=== PATIENT | male | born 1990 | race Caucasian/White ===

== ENCOUNTER → 2016-10-27 | Outpatient (CLI) | payer OTHER ==
[~2016-10-27] MED LIST: /LANS30GR; /PANT40TA OR; /QUET10TA OR; /QUET25TA OR; ABIL10TA PO; AMBI10TA OR; ATARAX OR; BENA25TA4 PO; BUSP10TA PO; BUSP10TA78 PO; BUSP30TA PO; CELE10TA; CELE40TA; CELE40TA OR; CELE40TA PO; CELEXA; CIPROHEPTADINE; CYPR4TA GT; CYPR4TA PO; CYPR4TAB PO; CYPROHEPTADINE PO; DEPA500T OR; DESYREL; DIPH50TA3 PO; HYDR-4274 PO; HYDR100C PO; HYDR1SOL PO; HYDRO50TAB PO; KLON0.5T; KLON1TAB OR; LEVO25TA34 PO; MAGN400T5 PO; NAPR220C PO; NEXI40CA PO; PEPT262T2 PO; PREV15CA OR; PROZ20CA11 PO; ROZE8TAB PO; SUBO8MIS SL; TRAZ150T PO; TRAZ50TA OR; ZOLP-189 PO; ZYPR5TAB2 PO; [UNRECOGNIZED DRUG - CODE] PO
[2016-10-27 17:24] LABS: ALBUMIN 4.2 GM/DL (3.2-5.2); ALKALINE PHOSPHATASE 93 U/L (45-117); ALT/SGPT 48 U/L (12-78); ANION GAP 7 MEQ/L (8-16); AST/SGOT 18 U/L (15-37); BILIRUBIN,TOTAL 0.3 MG/DL (0.2-1.0); BLOOD UREA NITROGEN 11 MG/DL (7-18); CALCIUM LEVEL 9.4 MG/DL (8.5-10.1); CARBON DIOXIDE LEVEL 24 MEQ/L (21-32); CHLORIDE LEVEL 111 MEQ/L (98-107); CREATININE FOR GFR 1.15 MG/DL (0.70-1.30); FREE T4 0.99 NG/DL (0.76-1.46); GLOMERULAR FILTRATION RATE > 60.0 (>60); GLUCOSE, FASTING 91 MG/DL (70-105); MAGNESIUM LEVEL 2.3 MG/DL (1.8-2.4); POTASSIUM SERUM 4.2 MEQ/L (3.5-5.1); SODIUM LEVEL 142 MEQ/L (136-145)
== END ==
LOC: M WUC 11:17
PROVIDERS: ATTEND Psychiatry & Neurology Psychiatry
DX: Z51.81 Encounter for therapeutic drug level monitoring (principal); Z79.899 Other long term (current) drug therapy

== ENCOUNTER → 2016-10-27 | Outpatient (CLI) | payer OTHER ==
[2016-10-27 17:03] LABS: FREE T4 0.99 NG/DL (0.76-1.46)
== END ==
LOC: M WUC 11:13
PROVIDERS: ATTEND Emergency Medicine
DX: E03.9 Hypothyroidism, unspecified (principal); E55.9 Vitamin D deficiency, unspecified

== ENCOUNTER → 2017-10-02 | Outpatient (CLI) | payer OTHER ==
[2017-10-02 14:13] LABS: ESTIMATED AVERAGE GLUCOSE 114 MG/DL (60-110); HEMOGLOBIN A1c 5.6 %
[2017-10-02 14:25] LABS: ALBUMIN/GLOBULIN RATIO 1.25 (1.00-1.93); ALKALINE PHOSPHATASE 99 U/L (45-117); ALT/SGPT 59 U/L (12-78); ANION GAP 5 MEQ/L (8-16); AST/SGOT 34 U/L (7-37); BILIRUBIN,TOTAL 0.3 MG/DL (0.2-1.0); BLOOD UREA NITROGEN 17 MG/DL (7-18); CALCIUM LEVEL 9.2 MG/DL (8.5-10.1); CARBON DIOXIDE LEVEL 29 MEQ/L (21-32); CHLORIDE LEVEL 109 MEQ/L (98-107); CHOLESTEROL LEVEL 192 MG/DL (<200); CHOLESTEROL RISK RATIO 4.682 (<5); CREATININE FOR GFR 1.19 MG/DL (0.70-1.30); GLOMERULAR FILTRATION RATE > 60.0 (>60); GLUCOSE, FASTING 95 MG/DL (70-100); HDL CHOLESTEROL 41 MG/DL (>40); LDL CHOLESTEROL 98.2 MG/DL (<100); MAGNESIUM LEVEL 2.4 MG/DL (1.8-2.4); NON-HDL-C 151 MG/DL; POTASSIUM SERUM 5.1 MEQ/L (3.5-5.1); SODIUM LEVEL 143 MEQ/L (136-145); TOTAL PROTEIN 7.2 GM/DL (6.4-8.2); TRIGLYCERIDES LEVEL 264 MG/DL (<150)
[2017-10-05 00:08] LABS: LAMOTRIGINE (LAMICTAL) 3.7 ug/mL (2.0-20.0)
== END ==
LOC: M WUC 12:18
DX: Z79.899 Other long term (current) drug therapy (principal)
CPT/HCPCS: 83735

== ENCOUNTER → 2018-10-29 | Outpatient (REF) | payer OTHER ==
[~2018-10-29] MED LIST changes: -/PANT40TA OR; -/QUET10TA OR; -/QUET25TA OR; -CYPR4TA GT; -CYPR4TA PO; +CYPR4TAB GT; +HYDR50TA70 PO; -HYDRO50TAB PO; +PROT1TAB2 OR; +SERO1TAB OR; +SERO1TAB3 OR
[2018-10-29 17:59] LABS: BASO # 0.1 10^3/uL (0.0-0.2); BASO % 0.9 % (0.0-1.0); EOS # 0.2 10^3/uL (0.0-0.50); EOS % 2.3 % (0.0-3.0); HEMATOCRIT 40.8 % (42.0-52.0); HEMOGLOBIN 13.7 g/dl (13.5-17.5); LYMPH # 2.7 10^3/uL (1.5-6.5); LYMPH % 41.2 % (24.0-44.0); MEAN CORPUSCULAR HGB CONC 33.6 g/dl (32.0-36.5); MEAN CORPUSCULAR VOLUME 89.3 fl (80.0-96.0); MONO # 0.5 10^3/uL (0.0-0.8); MONO % 7.1 % (0.0-5.0); NEUTROPHILS # 3.2 10^3/uL (1.8-7.7); PLATELET COUNT, AUTOMATED 295 10^3/uL (150-450); RED BLOOD COUNT 4.57 10^6/uL (4.30-6.10); WHITE BLOOD COUNT 6.6 10^3/uL (4.0-10.0)
[2018-10-29 18:04] LABS: ALBUMIN 3.8 GM/DL (3.2-5.2); ALT/SGPT 47 U/L (12-78); BILIRUBIN,TOTAL 0.1 MG/DL (0.2-1.0); BLOOD UREA NITROGEN 16 MG/DL (7-18); CALCIUM LEVEL 8.5 MG/DL (8.5-10.1); CARBON DIOXIDE LEVEL 21 MEQ/L (21-32); CHLORIDE LEVEL 113 MEQ/L (98-107); CHOLESTEROL LEVEL 261 MG/DL (<200); CHOLESTEROL RISK RATIO 7.054 (<5); CREATININE FOR GFR 1.07 MG/DL (0.70-1.30); FREE T4 0.85 NG/DL (0.76-1.46); GLOMERULAR FILTRATION RATE > 60.0 (>60); GLUCOSE, FASTING 92 MG/DL (70-100); HDL CHOLESTEROL 37 MG/DL (>40); NON-HDL-C 224 MG/DL; POTASSIUM SERUM 3.9 MEQ/L (3.5-5.1); SODIUM LEVEL 142 MEQ/L (136-145); TOTAL 25(OH) VITAMIN D 11.7 NG/ML (30.0-100.0); TOTAL PROTEIN 7.2 GM/DL (6.4-8.2); TRIGLYCERIDES LEVEL 468 MG/DL (<150)
[2018-10-29 18:58] LABS: HEMOGLOBIN A1c 5.5 %
== END ==
LOC: M LAB REF 16:48
PROVIDERS: ATTEND Nurse Practitioner Family
DX: Z13.9 Encounter for screening, unspecified (principal)

== ENCOUNTER 2019-04-03 16:05 | Inpatient (IN) | payer OTHER ==
[~2019-04-03] VITALS: Ht 172.7 cm; Wt 89.6 kg
[~2019-04-03 16:05] MED LIST changes: +ATOR1TAB21 PO; +BUSP1TAB PO; +DOCU100C16 PO; +ESCI20TA PO; +LAMO200T2 PO; +OMEP-218 PO; +QUET1TAB8 PO; +REXU1TAB4 PO; +REXU1TAB6 PO
[2019-04-03] MEDS ORDERED: ACETAMINOPHEN TAB 650MG DOSE (2X325MG) PO PRN (16:15)
[2019-04-03] MEDS ORDERED: MOM 30ML SUSPENSION UDC PO PRN (16:15)
[2019-04-03] MEDS ORDERED: MAALOX 30 ML SUSP *UDC PO PRN (16:15)
[2019-04-03 17:30] VITALS: BP 121/56
[2019-04-03] MEDS: ATORVASTATIN 20 MG TAB PO SCH (20:58)
[2019-04-03] MEDS: traZODone 50 MG TAB PO PRN (20:58)
[2019-04-03] MEDS ORDERED: IBUPROFEN 400 MG TAB PO PRN (21:30)
[2019-04-04] MEDS: LEVOTHYROXINE 25MCG TABLET (0.025MG) PO SCH (06:18)
[2019-04-04] MEDS: NICOTINE 21MG/24HR 1 EA TRANSDERMAL TD SCH (08:43)
--- NOTE | 2019-04-04 10:50 | HPEPDOC ---
General Date of Admission Apr 03, 2019 at 17:20 Date of Service: Apr 04, 2019 Chief Complaint The patient is a 29-year-old male admitted with a reason for visit of Unspecified Depressive Disorder. Source: Patient, Old records History of Present Illness 29 year old male has been admitted to [facility] after a suicidal attempt by ingestion of his father's medications when initially he was hypotensive, hypokalemic and had LES. All of which has now resolved so he was admitted to [facility] from medicine. Today he complains of periumbilical pain, which is constant dull aching, without any radiation about 3/10 denies any nausea or vomiting . Says had good bowel movement. he also says that he continues to fill dizzy and light headed on standing and walking. Says does not have any appetite. I am seeing the patient here for medical history and physical . Home Medications Scheduled Atorvastatin Calcium (Atorvastatin Calcium) 20 Mg Tablet, 20 MG PO QHS, (Reported) Buprenorphine HCl/Naloxone HCl (Suboxone 8 mg-2 mg Sl Film) 1 Mis Mis, 1 MIS SL DAILY, (Reported) Docusate Sodium (Docusate Sodium) 100 Mg Capsule, 200 MG PO BID, (Reported) Levothyroxine Sodium (Levoxyl) 25 Mcg Tab, 25 MCG PO DAILY, (Reported) Omeprazole (Omeprazole) 20 Mg Capsule.dr, 20 MG PO DAILY, (Reported) Allergies Coded Allergies: No Known Allergies (Verified , 10/18/04) Past Medical History Medical History Intentional multiple drug overdose with Suicidal intent Depression with h/o psychosis. 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 Dyspnea, Lt Headedness Gastrointestinal: Reports: Abdominal Pain (periumblical region); Denies: Nausea, Vomiting, Diarrhea, Constipation Genitourinary: Denies: Dysuria, Frequency, Incontinence, Retention Hematologic: Denies: Bruising, Bleeding Excessively Neurological: Denies: Weakness, Numbness, Change in speech, Confusion Physical Examination General Exam: Positive: Alert, Cooperative, No Acute Distress Eye Exam: Positive: PERRLA, Conjunctiva & lids normal, EOMI; Negative: Sclera icteric ENT Exam: Positive: Atraumatic, Mucous membr. moist/pink, Pharynx Normal Neck Exam: Positive: Supple; Negative: JVD, thyromegaly Chest Exam: Positive: Clear to auscultation, Normal air movement Heart Exam: Positive: Rate Normal, Regular Rhythm, Normal S1, Normal S2; Negative: Murmurs, Rubs Abdomen Exam: Positive: Normal bowel sounds, Soft, Tenderness (on deep palpation in the periumbilical area), Other (no guarding or rigidity); Negative: Hepatospenomegaly Extremity Exam: Positive: Normal pulses; Negative: Clubbing, Cyanosis, Edema Skin Exam: Positive: Nl turgor and temperature; Negative: Breakdown, Lesion Vital Signs Vital Signs Date Time Temp Pulse Resp B/P (MAP) Pulse Ox O2 Delivery O2 Flow Rate FiO2 04/03/19 17:30 98.3 60 16 121/56 (77) 97 Room Air Assessment/Plan 29 year old male has been admitted to [facility] after a suicidal attempt by ingestion of his father's medications when initially he was hypotensive, hypokalemic and had LES. All of which has now resolved so he was admitted to [facility] from medicine. Today he complains of periumbilical pain, which is constant dull aching, without any radiation about 3/10 denies any nausea or vomiting . Says had good bowel movement. he also says that he continues to fill dizzy and light headed on standing and walking. Says does not have any appetite. I am seeing the patient here for medical history and physical . Psychiatric issues as per psychiatry Abdominal pain may due to worsening of GERD. without any positive physical findings will start on pantoprazole and give GI cocktail prn Dizziness and lightheadedness probably due to recent intake of multiple antihypertensive medications BP normal. Sinus bradycardia resolved. 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
[2019-04-04] MEDS: PANTOPRAZOLE 40MG TAB (PROTONIX) PO SCH (11:06)
[2019-04-04] MEDS: BREXPIPRAZOLE 2MG TABLET (REXULTI) PO SCH (12:29)
[2019-04-04] MEDS: BUPRENORPHINE/NALOXONE 8-2MG SUBLINGUAL TABLET(SUBOXONE) SL SCH (12:29)
[2019-04-04] MEDS: GI COCKTAIL 50ML BTL(HYOSCYAMINE/MAALOX/LIDOCAINE VISCOUS)(1:3:1) PO PRN ×2 (14:32→21:19)
[2019-04-04 16:18] VITALS: BP 120/64
--- NOTE | 2019-04-04 18:49 | MHHPE ---
DATE OF ADMISSION: 04/03/2019 CURRENT MEDICATIONS: - Lamictal 400 mg per day - Suboxone 8 mg daily - Seroquel 150 mg at bedtime - Rexulti 6 mg per day CHIEF COMPLAINT: This is a 29-year-old white male single, living with his parents with a diagnosis of bipolar disorder being treated at [facility]. Patient has been depressed for approximately 1 month since his girlfriend broke up with him. His appetite is poor. He has lost 20 pounds. His concentration is poor. He complains of lack of interest and lack of energy. Patient quit his job impulsively. 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 After reconsideration, he got the job back, but one week later patient is not sleeping well at night. He has been struggling with suicidal thoughts ever since the girlfriend broke up with him. He blames himself for the breakup due to his behavior. However, he is not willing to discuss it. He denies that he is abusive towards her. Patient took a serious overdose requiring ICU treatment. He took his father's blood pressure medications. Patient was seen by Dr. Stearns and then by myself during the transfer. PAST PSYCHIATRIC HISTORY: Patient has a long psychiatric history dating back to age 12. He had anger issues at that time and was hospitalized at [facility]. Patient claims to have been hospitalized 10 to 15 times over the years. Please see old records. PAST MEDICAL HISTORY: Elevated cholesterol. Recent overdose. LEGAL HISTORY: Patient denies. CHEMICAL DEPENDENCY: History of alcoholism and opiate use. He has been to rehabilitation approximately four times over the years. He has been on Suboxone for about 3-1/2 years. He claims to have started using heroin approximately at age 22. He denies any relapses since being on the Suboxone. SOCIAL HISTORY: The patient born and raised in [place]. He has a GED. He has one semester of college. 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 He likes his job. Relationship with his parents are good. Relationship with his siblings are good as well. FAMILY PSYCHIATRIC HISTORY: There is a history of depression in the family. MENTAL STATUS EXAM: The patient is alert and oriented. He still reports feeling "cloudy" from the overdose, but no overt cognitive deficits. Affect is sad. Mood is moderately depressed with recent suicide attempt. No current signs of jc. No signs of psychosis. Not hearing voices. No signs of paranoia or thought disorder. Grooming and hygiene are marginal. No signs of jc. Patient appears impulsive and a potential danger to himself. Length of stay: 5 to 7 days. ASSESSMENT: The patient took a serious impulsive overdose after relationship conflict. DIAGNOSES: Bipolar disorder, depressed. Opiate use disorder. Alcohol use disorder. Status post overdose. PLAN: admission. Restart psychotropics gradually. Patient is not convinced that Lamictal had been helpful so this will be placed on hold for the time being. Patient encouraged to be involved in hospital milieu. Staff to work on appropriate discharge planning.
[2019-04-04] MEDS ORDERED: QUEtiapine FUMARATE 100 MG TAB PO SCH (21:00)
[2019-04-04] MEDS: ATORVASTATIN 20 MG TAB PO SCH (21:15)
[2019-04-05 05:59] VITALS: BP 111/56
[2019-04-05] MEDS: LEVOTHYROXINE 25MCG TABLET (0.025MG) PO SCH (06:03)
[2019-04-05] MEDS: BREXPIPRAZOLE 2MG TABLET (REXULTI) PO SCH (08:13)
[2019-04-05] MEDS: PANTOPRAZOLE 40MG TAB (PROTONIX) PO SCH (08:13)
[2019-04-05] MEDS: NICOTINE 21MG/24HR 1 EA TRANSDERMAL TD SCH (08:13)
[2019-04-05] MEDS: BUPRENORPHINE/NALOXONE 8-2MG SUBLINGUAL TABLET(SUBOXONE) SL SCH (09:02)
[2019-04-05] MEDS: GI COCKTAIL 50ML BTL(HYOSCYAMINE/MAALOX/LIDOCAINE VISCOUS)(1:3:1) PO PRN (10:19)
[2019-04-05] MEDS: ACETAMINOPHEN TAB 650MG DOSE (2X325MG) PO PRN ×2 (12:19→18:39)
[2019-04-05 16:21] VITALS: BP 106/65
[2019-04-05] MEDS: QUEtiapine FUMARATE 100 MG TAB PO SCH (21:45)
[2019-04-05] MEDS: ATORVASTATIN 20 MG TAB PO SCH (21:45)
[2019-04-06 05:45] VITALS: BP 130/55
[2019-04-06] MEDS: traZODone 50 MG TAB PO PRN (06:15)
[2019-04-06] MEDS: LEVOTHYROXINE 25MCG TABLET (0.025MG) PO SCH (06:15)
--- NOTE | 2019-04-06 08:15 | MHIPN ---
DATE OF SERVICE: 04/05/2019 VITAL SIGNS: Temperature 97.6, pulse 76, respirations 16, blood pressure 111/56. CURRENT MEDICATION: - Seroquel 100 mg at bedtime - Suboxone 8 mg daily - Rexulti 4 mg daily - trazodone 50 mg at bedtime as needed HISTORY OF PRESENT ILLNESS: Patient states that he feels more alert. Orthostatic symptoms appear to have resolved. He feels more like his old self. His headaches are resolving. He still feels moderately depressed but not suicidal. His appetite is increased. His sleep pattern is still not very good. Patient reports that frequently he would take Seroquel 200 mg at bedtime at home to help with sleep. He still complains of high levels of anxiety and periodic panic attacks. He thinks his parents might be coming in to visit later today during visiting hours. Patient is happy to be off the Lamictal. He claims it never really helped anyhow. He claims that it made him cognitively slowed. MENTAL STATUS EXAMINATION: Patient is alert, oriented and cooperative. Patient appears more alert on the unit and active. Depression is moderate. He is not currently suicidal. Patient denies current psychotic symptoms. No signs of manic. Grooming and hygiene remain marginal. He denies current dangerousness. DIAGNOSIS: Bipolar disorder, depressed. Opiate use disorder. Alcohol use disorder. Status post overdose. PLAN: Increase Seroquel to 200 mg at bedtime. Encourage involvement in hospital milieu.
[2019-04-06] MEDS: BREXPIPRAZOLE 2MG TABLET (REXULTI) PO SCH (08:35)
[2019-04-06] MEDS: PANTOPRAZOLE 40MG TAB (PROTONIX) PO SCH (08:35)
[2019-04-06] MEDS: NICOTINE 21MG/24HR 1 EA TRANSDERMAL TD SCH (08:37)
[2019-04-06] MEDS: BUPRENORPHINE/NALOXONE 8-2MG SUBLINGUAL TABLET(SUBOXONE) SL SCH (08:50)
[2019-04-06] MEDS: busPIRone 5 MG TAB PO SCH ×2 (11:25→20:32)
[2019-04-06 16:09] VITALS: BP 121/69
[2019-04-06] MEDS: GI COCKTAIL 50ML BTL(HYOSCYAMINE/MAALOX/LIDOCAINE VISCOUS)(1:3:1) PO PRN (17:12)
[2019-04-06] MEDS ORDERED: LORazepam 2 MG TAB PO ONE (20:00)
[2019-04-06] MEDS: ATORVASTATIN 20 MG TAB PO SCH (20:33)
[2019-04-06] MEDS: QUEtiapine FUMARATE 100 MG TAB PO SCH (20:33)
[2019-04-07] MEDS: traZODone 50 MG TAB PO PRN ×2 (01:32→22:48)
[2019-04-07] MEDS: LEVOTHYROXINE 25MCG TABLET (0.025MG) PO SCH (05:55)
[2019-04-07 06:37] VITALS: BP 125/70
--- NOTE | 2019-04-07 07:00 | MHIPN ---
DATE: 04/06/2019 VITAL SIGNS: Temperature 99.0, pulse 77, respirations 18, blood pressure 121/69. CURRENT MEDICATIONS: - Seroquel 200 mg at bedtime - Suboxone 8 mg daily - Rexulti 4 mg daily HISTORY OF PRESENT ILLNESS: The patient still reports some anxiety symptoms. The patient requests BuSpar which had been helpful on an outpatient basis. He still reports moderate depression. His family visited last night which went well. He has had some stomach issues. He vomited earlier today. He does not have a fever. MENTAL STATUS EXAMINATION: The patient is alert, oriented and cooperative. The patient moderately anxious, moderately depressed. No signs of suicidality. No current psychosis. No signs of jc. Grooming and hygiene are marginal. No signs of impulsivity or dangerousness. DIAGNOSIS: Bipolar disorder, depressed. Opiate use disorder. Alcohol use disorder. Status post overdose. PLAN: Add BuSpar 5 mg twice a day.
[2019-04-07] MEDS: NICOTINE 21MG/24HR 1 EA TRANSDERMAL TD SCH (08:16)
[2019-04-07] MEDS: PANTOPRAZOLE 40MG TAB (PROTONIX) PO SCH (08:16)
[2019-04-07] MEDS: BUPRENORPHINE/NALOXONE 8-2MG SUBLINGUAL TABLET(SUBOXONE) SL SCH (08:16)
[2019-04-07] MEDS: busPIRone 5 MG TAB PO SCH ×3 (08:16→20:48)
[2019-04-07] MEDS: BREXPIPRAZOLE 2MG TABLET (REXULTI) PO SCH (08:16)
[2019-04-07] MEDS: GI COCKTAIL 50ML BTL(HYOSCYAMINE/MAALOX/LIDOCAINE VISCOUS)(1:3:1) PO PRN (09:21)
[2019-04-07] MEDS: NICOTINE POLACRILEX 2 MG GUM PO PRN ×3 (12:58→20:48)
--- NOTE | 2019-04-07 14:14 | MHIPN ---
DATE: 04/07/2019 VITAL SIGNS: Temperature 98.4, pulse 75, respirations 16, blood pressure 125/70. CURRENT MEDICATIONS: BuSpar 5 mg twice a day. Seroquel 200 mg at bedtime. Suboxone 8 mg per day. Rexulti 4 mg daily. HISTORY OF PRESENT ILLNESS: The patient's mother had some cardiac symptoms yesterday and was in the emergency room. This made the patient highly anxious and upset. He was given a dose of Ativan 2 mg times one with good effect. He felt reassured later finding out that his mother was doing fine. His appetite is fair. His sleep patterns are poor. He is having periodic night yepez even with the Seroquel. The patient felt guilty about his mother's chest pain. He knows that his suicide attempt upset his parents and may have contributed to her chest pain. The staff contacted the patient's parents. They feel that he is not at baseline. He is still irritable with them and has labile mood. He has had no further GI issues. MENTAL STATUS EXAMINATION: The patient is alert, oriented, cooperative. Grooming and hygiene remain marginal. Patient moderately anxious today. Mood is mildly to moderately depressed. He denies wish to harm self or others. No current signs of psychosis or jc. Cognitive functions appear intact. DIAGNOSIS: Bipolar disorder, depressed. Opiate use disorder. Alcohol use disorder. Status post overdose. PLAN: Increase BuSpar to 5 mg three times a day.
[2019-04-07 15:26] VITALS: BP 145/78
[2019-04-07] MEDS: ATORVASTATIN 20 MG TAB PO SCH (20:48)
[2019-04-07] MEDS: QUEtiapine FUMARATE 100 MG TAB PO SCH (20:48)
[2019-04-08] MEDS: LEVOTHYROXINE 25MCG TABLET (0.025MG) PO SCH (06:05)
[2019-04-08 06:47] VITALS: BP 107/56
[2019-04-08] MEDS: NICOTINE POLACRILEX 2 MG GUM PO PRN ×5 (08:09→19:50)
[2019-04-08] MEDS: busPIRone 5 MG TAB PO SCH ×3 (08:10→21:07)
[2019-04-08] MEDS: BUPRENORPHINE/NALOXONE 8-2MG SUBLINGUAL TABLET(SUBOXONE) SL SCH (08:10)
[2019-04-08] MEDS: PANTOPRAZOLE 40MG TAB (PROTONIX) PO SCH (08:10)
[2019-04-08] MEDS: BREXPIPRAZOLE 2MG TABLET (REXULTI) PO SCH (08:10)
[2019-04-08] MEDS ORDERED: REXU1TAB4 PO (13:09)
[2019-04-08] MEDS ORDERED: REXU1TAB6 PO (13:09)
[2019-04-08] MEDS ORDERED: BUSP1TAB PO (13:12)
[2019-04-08] MEDS ORDERED: QUET200T2 PO (13:15)
--- NOTE | 2019-04-08 15:24 | MHIPN ---
DATE: 04/08/2019 VITAL SIGNS: Temperature 98.9, pulse 60, respirations 12, blood pressure 107/56. CURRENT MEDICATIONS: - BuSpar 5 mg twice a day - Seroquel 200 mg at bedtime - Suboxone 8 mg daily - Rexulti 4 mg daily HISTORY OF PRESENT ILLNESS: The patient states he feels "less foggy." His thinking is clearer. He states his mood is more steady and stable. He has started going to groups for the first time. His appetite is good. He has gained some weight back since his admission. He still has chronic sleep issues. He has history of nightmares. This is a chronic symptom and occurred at home as well. He feels the current Seroquel does help but sleep is not optimal. He has found the BuSpar helpful. Depression now is in the mild range. He does have goals. He wants to return to work. His parents are visiting frequently. Yesterday they were contacted and stated the patient was not at baseline. Discharge planning staff will contact them to get their updated assessment. MENTAL STATUS EXAMINATION: Patient is alert, oriented, cooperative. Grooming and hygiene are still marginal. Patient is mildly anxious. Mood is mildly depressed. He is not suicidal and homicidal. Insight and judgment seem improved. Patient not currently psychotic. No signs of jc. Cognitive functions appear within normal limits. DIAGNOSIS: Bipolar disorder, depressed. Opiate use disorder. Alcohol use disorder. Status post overdose. PLAN: Continue present management. DANETTE
[2019-04-08] MEDS: GI COCKTAIL 50ML BTL(HYOSCYAMINE/MAALOX/LIDOCAINE VISCOUS)(1:3:1) PO PRN (17:44)
[2019-04-08 18:11] VITALS: BP 122/62
[2019-04-08] MEDS: QUEtiapine FUMARATE 100 MG TAB PO SCH (21:07)
[2019-04-08] MEDS: ATORVASTATIN 20 MG TAB PO SCH (21:07)
[2019-04-09] MEDS: LEVOTHYROXINE 25MCG TABLET (0.025MG) PO SCH (06:10)
[2019-04-09 06:31] VITALS: BP 109/61
[2019-04-09] MEDS: busPIRone 5 MG TAB PO SCH (08:02)
[2019-04-09] MEDS: BUPRENORPHINE/NALOXONE 8-2MG SUBLINGUAL TABLET(SUBOXONE) SL SCH (08:02)
[2019-04-09] MEDS: PANTOPRAZOLE 40MG TAB (PROTONIX) PO SCH (08:03)
[2019-04-09] MEDS: BREXPIPRAZOLE 2MG TABLET (REXULTI) PO SCH (08:03)
[2019-04-09] MEDS: NICOTINE POLACRILEX 2 MG GUM PO PRN ×2 (08:05→10:36)
--- NOTE | 2019-04-09 09:27 | MHDS ---
DATE OF ADMISSION: 04/03/2019 DATE OF DISCHARGE: 04/09/2019 VITAL SIGNS: Temperature 98.9, pulse 60, respirations 12, blood pressure 107/56. LABS: CBC and differential normal except for low red blood cell, hemoglobin and hematocrit 4.16, 12.12, 37.7. Serum chemistry showed elevated chloride at 111. Urine toxicology screen was positive for amphetamine. DISCHARGE DIAGNOSES: Bipolar disorder, depressed. Opiate use disorder. Alcohol use disorder. Status post overdose of blood pressure medications. DISCHARGE MEDICATIONS: - Suboxone 8 mg daily - Seroquel 200 mg nightly - Rexulti 4 mg daily - BuSpar 15 mg daily CHIEF COMPLAINT: Patient took a serious overdose ending up in the intensive care unit (ICU) here at [facility]. HISTORY OF PRESENT ILLNESS: This is a 29-year-old single white male living with his parents. He has a diagnosis of bipolar disorder being treated at [facility]. He has been depressed for about 1 month since his girlfriend broke up with him. Patient has lost 20 pounds. 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 However, he was able to get it back after reconsideration. Patient took his father's blood pressure medications. Patient was seen by Dr. Stearns on consultation basis and the myself during the transfer. PROGRESS ON THE UNIT: Patient isolated a lot on the unit at first. He still appeared sedated and somewhat wobbly. Patient gradually became more alert. He had some gastrointestinal (GI) symptoms which eventually resolved. His appetite improved. He started to regain weight. He still complains of insomnia. He has a chronic history of nightmares, which date back for many years. Patient was restarted on his psychotropics. He did well on the lower dose of Rexulti 4 mg a day. His mood gradually improved. His anxiety symptoms appear to respond to the addition of the BuSpar. The patient had a scare when his mother had chest pain. His mother was seen in the emergency room but released. Family initially thought that he was not at baseline, however, several days later, they agreed that he was close to his old self and was willing to accept responsibility for discharge. Patient wanted to return to work. 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 The patient appeared future oriented and showed no signs of dangerousness at the time of discharge. MENTAL STATUS EXAMINATION: At the time of discharge mood and affect appeared reasonably good. He was no longer suicidal. Depression was minimal. Anxiety was minimal. No signs of impulsivity. He denied psychotic symptoms. Patient is not hearing voices. No paranoid episode. No signs of impulsivity or dangerousness. Cognitive function is intact. ASSESSMENT: Patient appears to have reached maximal hospital benefit. PLAN: Patient will be discharged tomorrow. Patient's mother to come poultry picking machine tender the patient and return home. ADDENDUM: Discharge summary is being dictated 1-day prior to actual date of discharge per request of staff.
== END 2019-04-09 11:13 | disposition home or self-care (01) | DRG 753 ==
LOC: M PSY 17:20
PROVIDERS: ADMIT Psychiatry & Neurology Psychiatry; ATTEND Psychiatry & Neurology Addiction Medicine
DX: F31.30 Bipolar disorder, current episode depressed, mild or moderate severity, unspecified (principal); E03.9 Hypothyroidism, unspecified; F11.90 Opioid use, unspecified, uncomplicated; F10.10 Alcohol abuse, uncomplicated; Z79.899 Other long term (current) drug therapy; E78.5 Hyperlipidemia, unspecified; K21.9 Gastro-esophageal reflux disease without esophagitis

== ENCOUNTER → 2019-05-22 | Outpatient (CLI) | payer OTHER ==
[~2019-05-22] MED LIST changes: -LAMO200T2 PO; +LAMO200T3 PO; +QUET200T2 PO
[2019-05-22 13:19] LABS: BASO # 0.1 10^3/uL (0.0-0.2); BASO % 0.7 % (0.0-1.0); EOS # 0.2 10^3/uL (0.0-0.5); EOS % 2.8 % (0.0-3.0); HEMATOCRIT 44.2 % (42.0-52.0); HEMOGLOBIN 14.2 g/dl (13.5-17.5); LYMPH # 3.3 10^3/uL (1.5-5.0); LYMPH % 45.4 % (24.0-44.0); MEAN CORPUSCULAR HEMOGLOBIN 28.7 pg (27.0-33.0); MEAN CORPUSCULAR HGB CONC 32.1 g/dl (32.0-36.5); MEAN CORPUSCULAR VOLUME 89.5 fl (80.0-96.0); MONO # 0.5 10^3/uL (0.0-0.8); MONO % 6.5 % (0.0-5.0); NEUTROPHILS # 3.2 10^3/uL (1.5-8.5); NEUTROPHILS % 44.3 % (36.0-66.0); PLATELET COUNT, AUTOMATED 283 10^3/uL (150-450); RED BLOOD COUNT 4.94 10^6/uL (4.30-6.10); WHITE BLOOD COUNT 7.2 10^3/uL (4.0-10.0)
[2019-05-22 13:52] LABS: HEMOGLOBIN A1c 5.4 %
[2019-05-22 13:55] LABS: ALT/SGPT 66 U/L (12-78); BILIRUBIN,TOTAL 0.3 MG/DL (0.2-1.0); BLOOD UREA NITROGEN 13 MG/DL (7-18); CALCIUM LEVEL 9.4 MG/DL (8.5-10.1); CARBON DIOXIDE LEVEL 29 MEQ/L (21-32); CHLORIDE LEVEL 105 MEQ/L (98-107); CREATININE FOR GFR 1.05 MG/DL (0.70-1.30); GLOMERULAR FILTRATION RATE > 60.0 (>60); GLUCOSE, FASTING 98 MG/DL (70-100); POTASSIUM SERUM 4.1 MEQ/L (3.5-5.1); SODIUM LEVEL 139 MEQ/L (136-145); TOTAL PROTEIN 7.5 GM/DL (6.4-8.2)
== END ==
LOC: M LAB 12:23
PROVIDERS: ATTEND Psychiatry & Neurology Child & Adolescent Psychiatry
DX: Z51.81 Encounter for therapeutic drug level monitoring (principal); Z79.899 Other long term (current) drug therapy
CPT/HCPCS: 36415; 80053; 80307; 83036; 84443; 85025; G0480

== ENCOUNTER → 2019-07-15 | Outpatient (REF) | payer OTHER ==
[~2019-07-15] MED LIST changes: +QUET100T2 PO; -QUET1TAB8 PO
[2019-07-15 12:52] LABS: BASO # 0.1 10^3/uL (0.0-0.2); BASO % 0.7 % (0.0-1.0); EOS # 0.2 10^3/uL (0.0-0.5); EOS % 1.8 % (0.0-3.0); HEMATOCRIT 42.3 % (42.0-52.0); LYMPH # 4.2 10^3/uL (1.5-5.0); LYMPH % 35.6 % (24.0-44.0); MEAN CORPUSCULAR HEMOGLOBIN 28.9 pg (27.0-33.0); MEAN CORPUSCULAR HGB CONC 33.1 g/dl (32.0-36.5); MEAN CORPUSCULAR VOLUME 87.4 fl (80.0-96.0); MONO # 0.7 10^3/uL (0.0-0.8); MONO % 6.3 % (0.0-5.0); NEUTROPHILS # 6.5 10^3/uL (1.5-8.5); NEUTROPHILS % 55.2 % (36.0-66.0); PLATELET COUNT, AUTOMATED 310 10^3/uL (150-450); RED BLOOD COUNT 4.84 10^6/uL (4.30-6.10); WHITE BLOOD COUNT 11.7 10^3/uL (4.0-10.0)
[2019-07-15 13:11] LABS: ALBUMIN 4.5 GM/DL (3.2-5.2); ALT/SGPT 65 U/L (12-78); BILIRUBIN,TOTAL 0.4 MG/DL (0.2-1.0); BLOOD UREA NITROGEN 18 MG/DL (7-18); CALCIUM LEVEL 9.6 MG/DL (8.5-10.1); CARBON DIOXIDE LEVEL 30 MEQ/L (21-32); CHLORIDE LEVEL 108 MEQ/L (98-107); CHOLESTEROL LEVEL 266 MG/DL (<200); CREATININE FOR GFR 0.99 MG/DL (0.70-1.30); FREE T4 0.91 NG/DL (0.76-1.46); GLOMERULAR FILTRATION RATE > 60.0 (>60); GLUCOSE, FASTING 96 MG/DL (70-100); HDL CHOLESTEROL 56 MG/DL (>40); LDL CHOLESTEROL 161 MG/DL (<100); NON-HDL-C 210 MG/DL; SODIUM LEVEL 142 MEQ/L (136-145); TOTAL 25(OH) VITAMIN D 18.7 NG/ML (30.0-100.0); TOTAL PROTEIN 7.7 GM/DL (6.4-8.2); TRIGLYCERIDES LEVEL 246 MG/DL (<150)
== END ==
LOC: M LAB REF 12:10
PROVIDERS: ATTEND Nurse Practitioner Family
DX: Z13.9 Encounter for screening, unspecified (principal); E78.5 Hyperlipidemia, unspecified; E03.9 Hypothyroidism, unspecified

== ENCOUNTER → 2019-07-24 | Outpatient (CLI) | payer OTHER | LOC: M LAB 14:22 | PROVIDERS: ATTEND Psychiatry & Neurology Child & Adolescent Psychiatry | DX: F19.10 Other psychoactive substance abuse, uncomplicated (principal) ==

== ENCOUNTER → 2019-12-17 | Outpatient (CLI) | payer OTHER ==
[2020-01-25 12:01] LABS: ALBUMIN 4.4 GM/DL (3.2-5.2); ALT/SGPT 93 U/L (12-78); BILIRUBIN,TOTAL 0.6 MG/DL (0.2-1.0); BLOOD UREA NITROGEN 11 MG/DL (7-18); CALCIUM LEVEL 9.4 MG/DL (8.5-10.1); CARBON DIOXIDE LEVEL 33 MEQ/L (21-32); CHLORIDE LEVEL 106 MEQ/L (98-107); CHOLESTEROL LEVEL 209 MG/DL (<200); CHOLESTEROL RISK RATIO 6.147 (<5); CREATININE FOR GFR 1.14 MG/DL (0.70-1.30); FREE T4 0.85 NG/DL (0.76-1.46); GLOMERULAR FILTRATION RATE > 60.0 (>60); GLUCOSE, FASTING 87 MG/DL (70-100); HDL CHOLESTEROL 34 MG/DL (>40); HEMOGLOBIN A1c 5.6 %; LDL CHOLESTEROL 136 MG/DL (<100); NON-HDL-C 175 MG/DL; POTASSIUM SERUM 4.2 MEQ/L (3.5-5.1); SODIUM LEVEL 142 MEQ/L (136-145); TOTAL PROTEIN 7.6 GM/DL (6.4-8.2); TRIGLYCERIDES LEVEL 193 MG/DL (<150)
[2020-03-12 11:43] LABS: BASO # 0.1 10^3/uL (0.0-0.2); BASO % 0.9 % (0.0-1.0); EOS # 0.1 10^3/uL (0.0-0.5); EOS % 1.4 % (0.0-3.0); HEMATOCRIT 45.2 % (42.0-52.0); HEMOGLOBIN 14.7 g/dl (13.5-17.5); LYMPH # 3.1 10^3/uL (1.5-5.0); LYMPH % 39.1 % (24.0-44.0); MEAN CORPUSCULAR HEMOGLOBIN 28.7 pg (27.0-33.0); MEAN CORPUSCULAR HGB CONC 32.5 g/dl (32.0-36.5); MEAN CORPUSCULAR VOLUME 88.3 fl (80.0-96.0); MONO # 0.5 10^3/uL (0.0-0.8); MONO % 6.3 % (0.0-5.0); NEUTROPHILS # 4.1 10^3/uL (1.5-8.5); PLATELET COUNT, AUTOMATED 327 10^3/uL (150-450); RED BLOOD COUNT 5.12 10^6/uL (4.30-6.10); WHITE BLOOD COUNT 7.9 10^3/uL (4.0-10.0)
== END ==
LOC: M LAB 12:28
PROVIDERS: ATTEND Psychiatry & Neurology Child & Adolescent Psychiatry
DX: F11.90 Opioid use, unspecified, uncomplicated (principal); F32.9 Major depressive disorder, single episode, unspecified; F10.10 Alcohol abuse, uncomplicated

== ENCOUNTER → 2020-08-06 | Outpatient (CLI) | payer OTHER ==
[~2020-08-06] MED LIST changes: -ESCI20TA PO; +ESCI20TA16 PO
[2020-08-06 12:55] LABS: BASO # 0.1 10^3/uL (0.0-0.2); BASO % 0.9 % (0.0-1.0); EOS # 0.1 10^3/uL (0.0-0.5); EOS % 1.4 % (0.0-3.0); HEMATOCRIT 38.6 % (42.0-52.0); HEMOGLOBIN 12.9 g/dl (13.5-17.5); LYMPH # 2.8 10^3/uL (1.5-5.0); LYMPH % 42.5 % (24.0-44.0); MEAN CORPUSCULAR HEMOGLOBIN 28.5 pg (27.0-33.0); MEAN CORPUSCULAR HGB CONC 33.4 g/dl (32.0-36.5); MEAN CORPUSCULAR VOLUME 85.2 fl (80.0-96.0); MONO # 0.5 10^3/uL (0.0-0.8); MONO % 7.1 % (2.0-8.0); NEUTROPHILS # 3.2 10^3/uL (1.5-8.5); NEUTROPHILS % 47.6 % (36.0-66.0); PLATELET COUNT, AUTOMATED 274 10^3/uL (150-450); RED BLOOD COUNT 4.53 10^6/uL (4.30-6.10); WHITE BLOOD COUNT 6.6 10^3/uL (4.0-10.0)
[2020-08-06 13:12] LABS: HEMOGLOBIN A1c 5.4 %
[2020-08-06 13:32] LABS: ALT/SGPT 66 U/L (12-78); BILIRUBIN,TOTAL 0.1 MG/DL (0.2-1.0); BLOOD UREA NITROGEN 16 MG/DL (7-18); CALCIUM LEVEL 8.9 MG/DL (8.5-10.1); CARBON DIOXIDE LEVEL 28 MEQ/L (21-32); CHLORIDE LEVEL 108 MEQ/L (98-107); CHOLESTEROL LEVEL 191 MG/DL (<200); CHOLESTEROL RISK RATIO 5.305 (<5); CREATININE FOR GFR 0.98 MG/DL (0.70-1.30); GLOMERULAR FILTRATION RATE > 60.0 (>60); GLUCOSE, FASTING 134 MG/DL (70-100); HDL CHOLESTEROL 36 MG/DL (>40); LDL CHOLESTEROL 104 MG/DL (<100); NON-HDL-C 155 MG/DL; POTASSIUM SERUM 3.9 MEQ/L (3.5-5.1); SODIUM LEVEL 141 MEQ/L (136-145); TOTAL PROTEIN 6.9 GM/DL (6.4-8.2); TRIGLYCERIDES LEVEL 255 MG/DL (<150)
[2020-08-06 13:34] LABS: TOTAL 25(OH) VITAMIN D 13.7 NG/ML (30.0-100.0)
== END ==
LOC: M LAB 11:48
PROVIDERS: ATTEND Nurse Practitioner Psychiatric/Mental Health
DX: F11.20 Opioid dependence, uncomplicated (principal)
CPT/HCPCS: 36415; 80053; 80061; 80307; 82306; 83036; 84439; 84443; 85025; G0480

== ENCOUNTER → 2021-03-15 | Outpatient (CLI) | payer BC, OTHER ==
[2021-03-15 16:20] LABS: BASO # 0.1 10^3/uL (0.0-0.2); BASO % 0.4 % (0.0-1.0); EOS % 0.1 % (0.0-3.0); HEMATOCRIT 42.9 % (42.0-52.0); HEMOGLOBIN 14.3 g/dl (13.5-17.5); LYMPH # 2.2 10^3/uL (1.5-5.0); LYMPH % 14.9 % (24.0-44.0); MEAN CORPUSCULAR HEMOGLOBIN 28.3 pg (27.0-33.0); MEAN CORPUSCULAR HGB CONC 33.3 g/dl (32.0-36.5); MEAN CORPUSCULAR VOLUME 84.8 fl (80.0-96.0); MONO # 0.9 10^3/uL (0.0-0.8); NEUTROPHILS # 11.6 10^3/uL (1.5-8.5); NEUTROPHILS % 78.2 % (36.0-66.0); PLATELET COUNT, AUTOMATED 404 10^3/uL (150-450); RED BLOOD COUNT 5.06 10^6/uL (4.30-6.10); WHITE BLOOD COUNT 14.9 10^3/uL (4.0-10.0)
[2021-03-15 16:36] LABS: HEMOGLOBIN A1c 5.5 %
[2021-03-15 18:47] LABS: ALBUMIN 4.7 GM/DL (3.2-5.2); ALT/SGPT 56 U/L (12-78); BILIRUBIN,TOTAL 0.6 MG/DL (0.2-1.0); BLOOD UREA NITROGEN 12 MG/DL (7-18); CALCIUM LEVEL 10.2 MG/DL (8.5-10.1); CARBON DIOXIDE LEVEL 31 MEQ/L (21-32); CHLORIDE LEVEL 103 MEQ/L (98-107); CHOLESTEROL LEVEL 282 MG/DL (<200); CREATININE FOR GFR 1.05 MG/DL (0.70-1.30); GLOMERULAR FILTRATION RATE > 60.0 (>60); GLUCOSE, FASTING 109 MG/DL (70-100); HDL CHOLESTEROL 46 MG/DL (>40); LDL CHOLESTEROL 216 MG/DL (<100); NON-HDL-C 236 MG/DL; POTASSIUM SERUM 3.9 MEQ/L (3.5-5.1); SODIUM LEVEL 138 MEQ/L (136-145); TRIGLYCERIDES LEVEL 100 MG/DL (<150)
== END ==
LOC: M WUC 13:16
PROVIDERS: ATTEND Nurse Practitioner Family
DX: Z76.89 Persons encountering health services in other specified circumstances (principal)

== ENCOUNTER → 2022-05-25 | Outpatient (REF) | payer BC, MEDICAID, OTHER ==
[~2022-05-25] MED LIST changes: +OMEP-173 PO; -OMEP-218 PO
[2022-05-25 13:28] LABS: BASO # 0.1 10^3/uL (0.0-0.2); BASO % 0.7 % (0.0-1.0); EOS # 0.1 10^3/uL (0.0-0.5); HEMATOCRIT 41.5 % (42.0-52.0); HEMOGLOBIN 13.8 g/dl (13.5-17.5); MEAN CORPUSCULAR HEMOGLOBIN 28.6 pg (27.0-33.0); MEAN CORPUSCULAR HGB CONC 33.3 g/dl (32.0-36.5); MEAN CORPUSCULAR VOLUME 85.9 fl (80.0-96.0); MONO # 0.6 10^3/uL (0.0-0.8); MONO % 6.2 % (2.0-8.0); NEUTROPHILS # 5.3 10^3/uL (1.5-8.5); NEUTROPHILS % 58.8 % (36.0-66.0); PLATELET COUNT, AUTOMATED 380 10^3/uL (150-450); RED BLOOD COUNT 4.83 10^6/uL (4.30-6.10)
[2022-05-25 13:35] LABS: HEMOGLOBIN A1c 5.3 % (4.0-6.0)
[2022-05-25 13:59] LABS: FREE T4 1.27 NG/DL (0.89-1.76); THYROID STIMULATING HORMONE 2.985 uIU/ML (0.55-4.78)
[2022-05-25 14:01] LABS: ALBUMIN 4.6 G/DL (3.2-5.2); ALKALINE PHOSPHATASE 83 U/L (46-116); ALT/SGPT 51 U/L (7.0-40); AST/SGOT 22 U/L (<34); BILIRUBIN,TOTAL 0.4 MG/DL (0.3-1.2); BLOOD UREA NITROGEN 17 MG/DL (9-23); CARBON DIOXIDE LEVEL 26 MMOL/L (20-31); CHLORIDE LEVEL 104 MMOL/L (98-107); CHOLESTEROL LEVEL 202 MG/DL (<200); CHOLESTEROL RISK RATIO 4.89 (<5); CREATININE FOR GFR 1.02 MG/DL (0.70-1.30); GLOMERULAR FILTRATION RATE > 60.0 (>60); GLUCOSE, FASTING 87 MG/DL (60-100); HDL CHOLESTEROL 41.3 MG/DL (>40); LDL CHOLESTEROL 130.1 MG/DL (<100); NON-HDL-C 161 MG/DL; POTASSIUM SERUM 4.3 MMOL/L (3.5-5.1); SODIUM LEVEL 141 MMOL/L (136-145); TOTAL PROTEIN 7.4 G/DL (5.7-8.2); TRIGLYCERIDES LEVEL 153 MG/DL (<150)
[2022-05-29 14:08] LABS: PSA TOTAL 1.8 ng/mL (0.0-4.0); VITAMIN D 1,25 DIHYDROXY 30.2 pg/mL (24.8-81.5)
== END ==
LOC: M LAB REF 12:54
PROVIDERS: ATTEND Nurse Practitioner Family
DX: Z13.228 Encounter for screening for other metabolic disorders (principal); Z80.42 Family history of malignant neoplasm of prostate

== ENCOUNTER 2022-07-10 16:05 | Emergency (ER) | payer BC, OTHER ==
[~2022-07-10] VITALS: Ht 175.3 cm; Wt 85.2 kg
[2022-07-10 16:06] VITALS: BP 125/75
[2022-07-10 17:13] LABS: BASO # 0.1 10^3/uL (0.0-0.2); BASO % 0.7 % (0.0-1.0); EOS # 0.1 10^3/uL (0.0-0.5); HEMATOCRIT 42.5 % (42.0-52.0); HEMOGLOBIN 14.1 g/dl (13.5-17.5); LYMPH # 2.6 10^3/uL (1.5-5.0); LYMPH % 36.4 % (24.0-44.0); MEAN CORPUSCULAR HEMOGLOBIN 28.7 pg (27.0-33.0); MEAN CORPUSCULAR HGB CONC 33.2 g/dl (32.0-36.5); MEAN CORPUSCULAR VOLUME 86.6 fl (80.0-96.0); MONO # 0.5 10^3/uL (0.0-0.8); MONO % 6.3 % (2.0-8.0); NEUTROPHILS % 55.3 % (36.0-66.0); PLATELET COUNT, AUTOMATED 375 10^3/uL (150-450); RED BLOOD COUNT 4.91 10^6/uL (4.30-6.10); WHITE BLOOD COUNT 7.2 10^3/uL (4.0-10.0)
[2022-07-10 17:29] LABS: BLOOD UREA NITROGEN 10 MG/DL (9-23); CALCIUM LEVEL 10.3 MG/DL (8.5-10.1); CARBON DIOXIDE LEVEL 30 MMOL/L (20-31); CHLORIDE LEVEL 104 MMOL/L (98-107); CREATININE FOR GFR 0.92 MG/DL (0.70-1.30); GLOMERULAR FILTRATION RATE > 60.0 (>60); GLUCOSE, FASTING 99 MG/DL (60-100); POTASSIUM SERUM 4.7 MMOL/L (3.5-5.1); SODIUM LEVEL 141 MMOL/L (136-145)
[2022-07-10 17:30] LABS: CK-MB VALUE MASS < 1.0 NG/ML (<3.6)
[2022-07-10 17:34] LABS: FREE T4 1.27 NG/DL (0.89-1.76); THYROID STIMULATING HORMONE 0.954 uIU/ML (0.55-4.78)
[2022-07-10 17:35] LABS: CPK CREATINE PHOSPHOKINASE 127 U/L (46-171); MB/CK RELATIVE INDEX 0.78 (< OR =4)
[2022-07-10 18:00] LABS: INR 0.87
== END 2022-07-10 20:10 | disposition left against medical advice (07) ==
LOC: M ED 16:05
DX: Z53.21 Procedure and treatment not carried out due to patient leaving prior to being seen by health care provider (principal)

== ENCOUNTER 2022-09-06 04:56 | Emergency (ER) | payer BC, MEDICAID, OTHER ==
[~2022-09-06] VITALS: Ht 177.8 cm; Wt 84.1 kg
[2022-09-06 06:23] LABS: BASO # 0.1 10^3/uL (0.0-0.2); BASO % 0.7 % (0.0-1.0); EOS # 0.2 10^3/uL (0.0-0.5); EOS % 2.2 % (0.0-3.0); HEMOGLOBIN 13.6 g/dl (13.5-17.5); LYMPH # 3.3 10^3/uL (1.5-5.0); LYMPH % 35.2 % (24.0-44.0); MEAN CORPUSCULAR HEMOGLOBIN 27.8 pg (27.0-33.0); MEAN CORPUSCULAR HGB CONC 32.4 g/dl (32.0-36.5); MEAN CORPUSCULAR VOLUME 85.9 fl (80.0-96.0); MONO # 0.7 10^3/uL (0.0-0.8); MONO % 7.7 % (2.0-8.0); NEUTROPHILS # 5.1 10^3/uL (1.5-8.5); PLATELET COUNT, AUTOMATED 392 10^3/uL (150-450); RED BLOOD COUNT 4.89 10^6/uL (4.30-6.10); WHITE BLOOD COUNT 9.4 10^3/uL (4.0-10.0)
[2022-09-06 06:28] LABS: ETHYL ALCOHOL (ETHANOL) < 0.003 % (0.000-0.010)
[2022-09-06 06:30] LABS: ACETAMINOPHEN LEVEL < 2.0 UG/ML (10.0-20.0); ALBUMIN 4.4 G/DL (3.2-5.2); ALKALINE PHOSPHATASE 85 U/L (46-116); ALT/SGPT 59 U/L (7.0-40); AST/SGOT 20 U/L (<34); BILIRUBIN,DIRECT 0.1 MG/DL (<0.4); BILIRUBIN,TOTAL 0.4 MG/DL (0.3-1.2); BLOOD UREA NITROGEN 18 MG/DL (9-23); CALCIUM LEVEL 9.7 MG/DL (8.5-10.1); CARBON DIOXIDE LEVEL 28 MMOL/L (20-31); CHLORIDE LEVEL 105 MMOL/L (98-107); CPK CREATINE PHOSPHOKINASE 143 U/L (46-171); CREATININE FOR GFR 1.11 MG/DL (0.70-1.30); GLOMERULAR FILTRATION RATE > 60.0 (>60); GLUCOSE, FASTING 97 MG/DL (60-100); SALICYLATE LEVEL < 3.0 MG/DL (<30); SODIUM LEVEL 139 MMOL/L (136-145); TOTAL PROTEIN 7.3 G/DL (5.7-8.2)
[2022-09-06 07:05] LABS: CANNABINOIDS URINE NEGATIVE (NEGATIVE); PHENCYCLIDINE URINE NEGATIVE (NEGATIVE)
[2022-09-06 07:06] LABS: BARBITURATES URINE NEGATIVE (NEGATIVE); BENZODIAZEPINES URINE NEGATIVE (NEGATIVE); COCAINE METABOLITE URINE NEGATIVE (NEGATIVE); METHADONE URINE NEGATIVE (NEGATIVE); OPIATES URINE NEGATIVE (NEGATIVE)
[2022-09-06 07:11] LABS: AMPHETAMINES LEVEL URINE POSITIVE (NEGATIVE)
[2022-09-06 07:40] VITALS: BP 124/82
== END 2022-09-06 07:43 | disposition home or self-care (01) ==
LOC: M ED 04:56
DX: F15.10 Other stimulant abuse, uncomplicated (principal); T43.655A Adverse effect of methamphetamines, initial encounter; I10 Essential (primary) hypertension; E78.5 Hyperlipidemia, unspecified; G43.909 Migraine, unspecified, not intractable, without status migrainosus; G47.33 Obstructive sleep apnea (adult) (pediatric); F31.9 Bipolar disorder, unspecified; Z79.02 Long term (current) use of antithrombotics/antiplatelets; Z79.83 Long term (current) use of bisphosphonates; Z79.899 Other long term (current) drug therapy

== ENCOUNTER 2022-10-14 21:34 | Emergency (ER) | payer OTHER, MEDICAID ==
[~2022-10-14] VITALS: Ht 175.3 cm; Wt 96.0 kg
[2022-10-14 21:36] VITALS: BP 135/85
== END 2022-10-14 21:43 | disposition left against medical advice (07) ==
LOC: M ED 21:34
DX: Z53.21 Procedure and treatment not carried out due to patient leaving prior to being seen by health care provider (principal)

== ENCOUNTER → 2022-12-21 | Outpatient (REF) | payer OTHER, MEDICAID ==
[2022-12-21 13:19] LABS: CHOLESTEROL RISK RATIO 4.24 (<5); HDL CHOLESTEROL 41.7 MG/DL (>40); LDL CHOLESTEROL 93.1 MG/DL (<100); NON-HDL-C 135.3 MG/DL
== END ==
LOC: M LAB REF 11:22
PROVIDERS: ATTEND Nurse Practitioner Family
DX: R79.89 Other specified abnormal findings of blood chemistry (principal)

== ENCOUNTER → 2023-01-24 | Outpatient (CLI) | payer OTHER, MEDICAID ==
[2023-01-24 17:12] LABS: HEMATOCRIT 41.3 % (42.0-52.0); HEMOGLOBIN 13.7 g/dl (13.5-17.5); MEAN CORPUSCULAR HEMOGLOBIN 28.8 pg (27.0-33.0); MEAN CORPUSCULAR HGB CONC 33.2 g/dl (32.0-36.5); MEAN CORPUSCULAR VOLUME 86.9 fl (80.0-96.0); PLATELET COUNT, AUTOMATED 311 10^3/uL (150-450); RED BLOOD COUNT 4.75 10^6/uL (4.30-6.10); WHITE BLOOD COUNT 9.8 10^3/uL (4.0-10.0)
[2023-01-24 17:13] LABS: ALBUMIN 4.4 G/DL (3.2-5.2); ALKALINE PHOSPHATASE 123 U/L (46-116); ALT/SGPT 131 U/L (7.0-40); AST/SGOT 32 U/L (<34); BILIRUBIN,TOTAL 0.2 MG/DL (0.3-1.2); BLOOD UREA NITROGEN 13 MG/DL (9-23); CALCIUM LEVEL 9.7 MG/DL (8.5-10.1); CARBON DIOXIDE LEVEL 27 MMOL/L (20-31); CHLORIDE LEVEL 103 MMOL/L (98-107); CREATININE FOR GFR 0.95 MG/DL (0.70-1.30); GLOMERULAR FILTRATION RATE > 60.0 (>60); GLUCOSE, FASTING 94 MG/DL (60-100); POTASSIUM SERUM 4.1 MMOL/L (3.5-5.1); SODIUM LEVEL 139 MMOL/L (136-145); TOTAL PROTEIN 7.5 G/DL (5.7-8.2)
[2023-01-24 17:45] LABS: HIV 1&2 SCREEN NEGATIVE (NEGATIVE)
[2023-01-24 17:52] LABS: HEPATITIS C VIRUS ABY INDEX 0.12 INDEX (<0.8)
[2023-01-24 19:25] LABS: GC DNA AMPLIFICATION NEGATIVE (NEGATIVE)
== END ==
LOC: M WUC 13:03
PROVIDERS: ATTEND Family Medicine
DX: F11.20 Opioid dependence, uncomplicated (principal)

== ENCOUNTER → 2023-03-01 | Outpatient (CLI) | payer MEDICAID, OTHER | LOC: M WHC 12:03 | PROVIDERS: ATTEND Nurse Practitioner Family | DX: R10.2 Pelvic and perineal pain (principal) ==

== ENCOUNTER → 2023-05-12 | Outpatient (REF) | payer OTHER | LOC: M LAB REF 17:46 | PROVIDERS: ATTEND Physician Assistant Medical | DX: B34.9 Viral infection, unspecified (principal) ==

== ENCOUNTER → 2023-06-04 | Outpatient (REF) | payer OTHER ==
[2023-06-04 13:16] LABS: ALBUMIN 4.1 G/DL (3.2-5.2); ALKALINE PHOSPHATASE 112 U/L (46-116); ALT/SGPT 104 U/L (7.0-40); AST/SGOT 43 U/L (<34); BILIRUBIN,TOTAL 0.3 MG/DL (0.3-1.2); BLOOD UREA NITROGEN 11 MG/DL (9-23); CALCIUM LEVEL 9.4 MG/DL (8.5-10.1); CARBON DIOXIDE LEVEL 21 MMOL/L (20-31); CHLORIDE LEVEL 109 MMOL/L (98-107); CHOLESTEROL LEVEL 155 MG/DL (<200); CHOLESTEROL RISK RATIO 3.73 (<5); CREATININE FOR GFR 0.95 MG/DL (0.70-1.30); GLOMERULAR FILTRATION RATE > 60.0 (>60); GLUCOSE, FASTING 85 MG/DL (60-100); HDL CHOLESTEROL 41.5 MG/DL (>40); LDL CHOLESTEROL 72.9 MG/DL (<100); NON-HDL-C 113.5 MG/DL; POTASSIUM SERUM 4.2 MMOL/L (3.5-5.1); SODIUM LEVEL 139 MMOL/L (136-145); THYROID STIMULATING HORMONE 1.607 uIU/ML (0.55-4.78); TOTAL PROTEIN 6.9 G/DL (5.7-8.2); TRIGLYCERIDES LEVEL 203 MG/DL (<150)
== END ==
LOC: M LAB REF 12:06
PROVIDERS: ATTEND Family Medicine Addiction Medicine
DX: E03.9 Hypothyroidism, unspecified (principal)

== ENCOUNTER → 2023-09-06 | Outpatient (REF) | payer SELFPAY ==
[2023-09-06 13:31] LABS: ALBUMIN 4.1 G/DL (3.2-5.2); ALKALINE PHOSPHATASE 118 U/L (46-116); ALT/SGPT 73 U/L (7.0-40); AST/SGOT 42 U/L (<34); BILIRUBIN,TOTAL 0.3 MG/DL (0.3-1.2); BLOOD UREA NITROGEN 10 MG/DL (9-23); CALCIUM LEVEL 9.7 MG/DL (8.5-10.1); CARBON DIOXIDE LEVEL 26 MMOL/L (20-31); CHLORIDE LEVEL 107 MMOL/L (98-107); CHOLESTEROL LEVEL 177 MG/DL (<200); CHOLESTEROL RISK RATIO 4.33 (<5); GLOMERULAR FILTRATION RATE > 60.0 (>60); GLUCOSE, FASTING 127 MG/DL (60-100); HDL CHOLESTEROL 40.8 MG/DL (>40); LDL CHOLESTEROL 67.8 MG/DL (<100); NON-HDL-C 136.2 MG/DL; POTASSIUM SERUM 4.3 MMOL/L (3.5-5.1); SODIUM LEVEL 139 MMOL/L (136-145); TOTAL PROTEIN 7.1 G/DL (5.7-8.2); TRIGLYCERIDES LEVEL 342 MG/DL (<150)
[2023-09-06 13:34] LABS: THYROID STIMULATING HORMONE 2.938 uIU/ML (0.55-4.78)
== END ==
LOC: M LAB REF 12:02
PROVIDERS: ATTEND Family Medicine Addiction Medicine
DX: E78.5 Hyperlipidemia, unspecified (principal)

== ENCOUNTER → 2023-09-12 | Outpatient (CLI) | payer OTHER | LOC: M WUC 08:50 | PROVIDERS: ATTEND Nurse Practitioner Family | DX: M54.50 Low back pain, unspecified (principal) ==

== ENCOUNTER → 2023-12-18 | Outpatient (REF) | payer OTHER ==
[2023-12-18 19:16] LABS: ALBUMIN 4.5 G/DL (3.2-5.2); ALKALINE PHOSPHATASE 130 U/L (46-116); ALT/SGPT 94 U/L (7.0-40); AST/SGOT 33 U/L (<34); BILIRUBIN,TOTAL 0.2 MG/DL (0.3-1.2); BLOOD UREA NITROGEN 10 MG/DL (9-23); CALCIUM LEVEL 9.5 MG/DL (8.5-10.1); CARBON DIOXIDE LEVEL 23 MMOL/L (20-31); CHLORIDE LEVEL 109 MMOL/L (98-107); CHOLESTEROL LEVEL 186 MG/DL (<200); CHOLESTEROL RISK RATIO 4.44 (<5); CREATININE FOR GFR 1.24 MG/DL (0.70-1.30); GLOMERULAR FILTRATION RATE > 60.0 (>60); GLUCOSE, FASTING 111 MG/DL (60-100); HDL CHOLESTEROL 41.8 MG/DL (>40); NON-HDL-C 144.2 MG/DL; POTASSIUM SERUM 3.7 MMOL/L (3.5-5.1); SODIUM LEVEL 140 MMOL/L (136-145); TRIGLYCERIDES LEVEL 176 MG/DL (<150)
[2023-12-18 19:55] LABS: HEPATITIS C VIRUS ABY INDEX < 0.02 INDEX (<0.8)
== END ==
LOC: M LAB REF 17:05
PROVIDERS: ATTEND Family Medicine Addiction Medicine
DX: R74.01 Elevation of levels of liver transaminase levels (principal); E78.5 Hyperlipidemia, unspecified

== ENCOUNTER → 2024-01-28 | Outpatient (CLI) | payer OTHER ==
[2024-01-28 19:30] LABS: BASO # 0.1 10^3/uL (0.0-0.2); BASO % 0.6 % (0.0-1.0); EOS # 0.1 10^3/uL (0.0-0.5); EOS % 0.8 % (0.0-3.0); HEMATOCRIT 39.9 % (42.0-52.0); HEMOGLOBIN 13.3 g/dl (13.5-17.5); LYMPH # 3.6 10^3/uL (1.5-5.0); LYMPH % 33.5 % (24.0-44.0); MEAN CORPUSCULAR HEMOGLOBIN 28.5 pg (27.0-33.0); MEAN CORPUSCULAR HGB CONC 33.3 g/dl (32.0-36.5); MEAN CORPUSCULAR VOLUME 85.6 fl (80.0-96.0); MONO # 0.8 10^3/uL (0.0-0.8); MONO % 7.2 % (2.0-8.0); NEUTROPHILS # 6.2 10^3/uL (1.5-8.5); NEUTROPHILS % 57.3 % (36.0-66.0); PLATELET COUNT, AUTOMATED 372 10^3/uL (150-450); RED BLOOD COUNT 4.66 10^6/uL (4.30-6.10); WHITE BLOOD COUNT 10.9 10^3/uL (4.0-10.0)
[2024-01-28 19:31] LABS: HEMOGLOBIN A1c 5.7 % (4.0-6.0)
[2024-01-28 19:49] LABS: ALBUMIN 4.3 G/DL (3.2-5.2); BILIRUBIN,TOTAL 0.3 MG/DL (0.3-1.2); CALCIUM LEVEL 10.5 MG/DL (8.5-10.1); CHOLESTEROL RISK RATIO 5.01 (<5); CREATININE FOR GFR 1.71 MG/DL (0.70-1.30); FOLATE 9.69 NG/ML (>5.4); GLOMERULAR FILTRATION RATE 49.3 (>60); HDL CHOLESTEROL 42.9 MG/DL (>40); LDL CHOLESTEROL 108.5 MG/DL (<100); MAGNESIUM LEVEL 1.9 MG/DL (1.8-2.4); NON-HDL-C 172.1 MG/DL; POTASSIUM SERUM 4.1 MMOL/L (3.5-5.1); PROLACTIN 16.88 NG/ML (2.1-17.7); THYROID STIMULATING HORMONE 3.727 uIU/ML (0.55-4.78); TOTAL 25(OH) VITAMIN D 18.8 NG/ML (20.0-100.0); TOTAL PROTEIN 7.6 G/DL (5.7-8.2)
[2024-01-28 19:51] LABS: FREE T4 1.13 NG/DL (0.89-1.76)
== END ==
LOC: M WUC 14:20
PROVIDERS: ATTEND Nurse Practitioner Psychiatric/Mental Health
DX: F32.A Depression, unspecified (principal)

== ENCOUNTER → 2024-02-13 | Outpatient (REF) | payer OTHER ==
[2024-02-13 14:05] LABS: THYROID STIMULATING HORMONE 1.205 uIU/ML (0.55-4.78)
[2024-02-13 14:07] LABS: ALBUMIN 4.1 G/DL (3.2-5.2); ALKALINE PHOSPHATASE 136 U/L (46-116); ALT/SGPT 64 U/L (7.0-40); AST/SGOT 27 U/L (<34); BILIRUBIN,TOTAL 0.2 MG/DL (0.3-1.2); BLOOD UREA NITROGEN 10 MG/DL (9-23); CALCIUM LEVEL 10.2 MG/DL (8.5-10.1); CARBON DIOXIDE LEVEL 24 MMOL/L (20-31); CHLORIDE LEVEL 106 MMOL/L (98-107); CHOLESTEROL LEVEL 209 MG/DL (<200); CHOLESTEROL RISK RATIO 5.54 (<5); CREATININE FOR GFR 1.27 MG/DL (0.70-1.30); GLOMERULAR FILTRATION RATE > 60.0 (>60); GLUCOSE, FASTING 118 MG/DL (60-100); HDL CHOLESTEROL 37.7 MG/DL (>40); LDL CHOLESTEROL 127.7 MG/DL (<100); NON-HDL-C 171.3 MG/DL; POTASSIUM SERUM 4.8 MMOL/L (3.5-5.1); SODIUM LEVEL 136 MMOL/L (136-145); TESTOSTERONE 143 NG/DL (241-827); TOTAL PROTEIN 7.2 G/DL (5.7-8.2); TRIGLYCERIDES LEVEL 218 MG/DL (<150)
== END ==
LOC: M LAB REF 13:10
PROVIDERS: ATTEND Family Medicine Addiction Medicine
DX: E78.5 Hyperlipidemia, unspecified (principal); R89.1 Abnormal level of hormones in specimens from other organs, systems and tissues

== ENCOUNTER 2025-01-01 08:23 | Emergency (ER) | payer OTHER ==
[~2025-01-01] VITALS: Ht 175.3 cm; Wt 114.2 kg
[2025-01-01 09:16] LABS: PLATELET COUNT, AUTOMATED 444 10^3/uL (150-450)
[2025-01-01 09:35] LABS: AMPHETAMINES LEVEL URINE NEGATIVE (NEGATIVE)
[2025-01-01 09:36] LABS: BARBITURATES URINE NEGATIVE (NEGATIVE); BENZODIAZEPINES URINE NEGATIVE (NEGATIVE); CANNABINOIDS URINE NEGATIVE (NEGATIVE); COCAINE METABOLITE URINE NEGATIVE (NEGATIVE); METHADONE URINE NEGATIVE (NEGATIVE); OPIATES URINE NEGATIVE (NEGATIVE); PHENCYCLIDINE URINE NEGATIVE (NEGATIVE)
[2025-01-01 09:39] LABS: ETHYL ALCOHOL (ETHANOL) < 0.003 % (0.000-0.010)
[2025-01-01 09:40] LABS: ALT/SGPT 72 U/L (7.0-40); AST/SGOT 40 U/L (<34); CALCIUM LEVEL 10.1 MG/DL (8.5-10.1); CARBON DIOXIDE LEVEL 21 MMOL/L (20-31); CHLORIDE LEVEL 92 MMOL/L (98-107); CREATININE FOR GFR 1.08 MG/DL (0.70-1.30); GLOMERULAR FILTRATION RATE > 90.0 (>60); POTASSIUM SERUM 4.1 MMOL/L (3.5-5.1); SALICYLATE LEVEL < 3.0 MG/DL (<30); SODIUM LEVEL 129 MMOL/L (136-145)
[2025-01-01] MEDS ORDERED: BUPR150T12 PO (09:58)
[2025-01-01] MEDS ORDERED: RIZA10TA2 PO (09:58)
[2025-01-01] MEDS ORDERED: ZONI100C67 PO (09:58)
[2025-01-01] MEDS ORDERED: SERT-141 PO (09:58)
[2025-01-01] MEDS ORDERED: OMEP40CA5 PO (09:58)
[2025-01-01] MEDS ORDERED: METH36TA13 PO (09:58)
[2025-01-01] MEDS ORDERED: SUCR1TAB56 PO (09:58)
[2025-01-01] MEDS ORDERED: OXCA300T14 PO (09:58)
[2025-01-01] MEDS ORDERED: ATIV1TAB10 PO (09:58)
[2025-01-01] MEDS ORDERED: BUPR-766 PO (09:58)
[2025-01-01] MEDS ORDERED: LISI20TA33 PO (09:58)
[2025-01-01] MEDS ORDERED: GUAN1TAB16 PO (09:58)
[2025-01-01] MEDS ORDERED: QUET100T2 PO (09:58)
[2025-01-01] MEDS ORDERED: TEST5GEL TOP (09:58)
[2025-01-01] MEDS ORDERED: OXCA150T21 PO (09:58)
[2025-01-01] MEDS ORDERED: TOPI-257 PO (09:58)
[2025-01-01] MEDS ORDERED: HOME MED LIST COMPLETE! XX SCH (10:00)
[2025-01-01 13:58] VITALS: BP 166/89; TEMP 98.2; O2SAT 100
== END 2025-01-01 14:00 | disposition home or self-care (01) ==
LOC: M ED 08:23
DX: F25.1 Schizoaffective disorder, depressive type (principal); K21.9 Gastro-esophageal reflux disease without esophagitis; E78.5 Hyperlipidemia, unspecified; F19.10 Other psychoactive substance abuse, uncomplicated; Z79.899 Other long term (current) drug therapy